=== PATIENT | female | born 1945 | race Caucasian/White ===

== ENCOUNTER → 2016-09-06 15:36 | Outpatient (CLI) | payer MEDICARE, OTHER | END | disposition home or self-care (01) | LOC: D.MRI 15:36 | DX: M54.5 Low back pain (principal) ==

== ENCOUNTER → 2016-09-28 17:18 | Outpatient (CLI) | payer MEDICARE | END | disposition home or self-care (01) | LOC: D.MAMMO 15:30 | DX: Z12.31 Encounter for screening mammogram for malignant neoplasm of breast (principal) ==

== ENCOUNTER 2018-03-27 06:40 | Day surgery (SDC) | payer MEDICARE, OTHER ==
[2018-03-26 13:01] LABS: BASOPHILS 0.3 % (0-2); HEMATOCRIT 43.2 % (36.0-48.0); HEMOGLOBIN 14.6 g/dL (12-16); IMMATURE GRANULOCYTES 0.5 % (0-5); LYMPHOCYTES 20.5 % (15-50); MCH 31.1 pg (26.0-34.0); MCHC 33.8 g/dL (31.0-37.0); MCV 92.1 fL (80.0-100.0); MEAN PLATELET VOLUME 9.2 fL (7.4-10.4); MONOCYTES 8.7 % (2-11); PLATELET COUNT 281 10x3/uL (130-400); RBC 4.69 10x6/uL (4.00-5.40); RDW 13.2 % (11.5-14.5); WBC 15.9 10x3/uL (4.8-10.8)
[2018-03-26 13:15] LABS: APTT 21.1 SECONDS (22.8-39.4); INR 0.83 (0.85-1.17)
[2018-03-26 13:17] LABS: CALC OSMOLALITY 282 mosm/kg (275-300); CALCIUM 9.7 mg/dL (8.5-10.1); CARBON DIOXIDE 28.5 mmol/L (21.0-32.0); CHLORIDE - SERUM 102 mmol/L (98-107); CREATININE - SERUM 0.7 mg/dL (0.6-1.3); GLUCOSE 120 mg/dL (74-106); POTASSIUM - SERUM 4.2 mmol/L (3.5-5.1); SODIUM 139 mmol/L (136-145); UREA NITROGEN 23 mg/dL (7-18); eGFR NON AFRICAN AMERICAN 88 mL/min (90-120)
[~2018-03-27] VITALS: Ht 165.1 cm; Wt 61.2 kg
--- NOTE | ~2018-03-27 | OP ---
PATIENT NAME: ALTAGRACIA GARCÍA MEDICAL RECORD: [id number] :49 LOCATION:D.OPS ADMISSION DATE: SURGEON: MARCIANO AMEZCUA MD DATE OF OPERATION: 03/27/2018 SURGEON: Marciano Amezcua MD ANESTHESIA: General anesthesia by Eusebio Charles CRNA. DIAGNOSES: 1. Female stress urinary incontinence. 2. Midline cystocele, Piedmont-Walker grade II. 3. Rectocele, Piedmont-Walker grade II. PROCEDURES: Cystoscopy, pubovaginal sling using [employer] Obtryx graft, cystocele repair using [employer] Uphold mesh graft, rectocele repair by levator ani muscle plication. FINDINGS ON CYSTOSCOPY: Single ureteral orifices bilaterally. No bladder injury, no bladder tumors. SPECIMENS: Posterior vaginal wall mucosa. BLOOD LOSS: 50 mL. CLINICAL HISTORY: This is a 72-year-old female A3, who was referred by Dr. Thrasher for a chief complaint of urinary incontinence. She had symptoms for over 10 years. At that time, she was in [place] and she was offered a pubovaginal sling. However, she was worried about the adverse publicity generated by vaginal mesh reconstructions and therefore she held off having any surgery done. In the meantime, her symptoms have become worse. She is post vaginal hysterectomy. When I examined her, she also had a pelvic organ prolapse with a midline grade II cystocele and rectocele grade II. She has trouble completely emptying her bladder. She also has trouble completely emptying her rectum with defecation. After a prolonged period of time and with discussion regarding the pros and cons of fascial graft versus mesh graft, she decided to go with a mesh graft for her repair. SHE IS ALLERGIC TO ACETAMINOPHEN. We gave her Ancef contact officer to the OR. DESCRIPTION OF PROCEDURE: The patient was given induction of general anesthesia in supine position. She was then placed into dorsal lithotomy position and shaved, prepped and draped. A Wells catheter 16-Thai was inserted into the bladder and put to bag drainage. There is some vaginal stenosis, which makes placement of a weighted speculum difficult. I had to perform an episiotomy incision on the posterior fourchette in order to open it up. This allowed the weighted speculum to be placed into opened up vaginal opening. The #1 sutures were used through the labia majora and anchored to the medial thighs on each side. These stay sutures acted as retraction sutures to keep the vagina open. The cystocele was readily visible. The anterior vaginal wall was infiltrated with Pitressin solution. Twenty units of Pitressin was dissolved in 100 mL of injectable normal saline. This solution was used for hydrodissection. A transverse incision was made at the level of the bladder neck. This was made using a #15 blade. Using Metzenbaum scissors, we then proceeded to dissect the plane between the anterior vaginal wall and the undersurface of the bladder. Laterally, we took down the pubocervical fascia on each side. Anteriorly, I OPERATIVE REPORT [id number] ALTAGRACIA GARCÍA cleared off the obturator membrane and especially the apical portion of the obturator membrane. Posteriorly, we entered the presacral space, which contained the ischial spine and the sacrospinous ligament. Once the space was all cleared, I now used the [employer] suture jinrikisha driver to place the posterior suspensory arms of the [employer] Uphold graft to the sacrospinous ligaments on each side. The landmark is 1 cm medial to the ischial spine and the sutures placed through the sacrospinous ligament. The reason for moving medially away from the ischial spine is to avoid hitting the internal pudendal artery and nerve. Once these were in correct position, the graft was pulled down using the graft arms into the correct position. A 3-0 Vicryl tacking suture was placed at the level of the vaginal cuff and also at the level of the bladder neck in order to prevent the cystocele or prevent the graft from curling up. It laid completely flat under the bladder. We then landmarked for the pubovaginal sling. The entry point is inferior to the insertion of the adductor longus muscle on the descending pubic ramus. A stab incision was made here on each side. The helical trocars were then placed through this incision point, deep to the descending pubic ramus and then the tip of the needle would exit through the anterior apex of the obturator membrane. The Obtryx graft arms were then attached to the tips of the helical needles and these needles were withdrawn resulting in transobturator passage of the pubovaginal sling. At this point, we removed the Wells catheter. Cystoscopy was performed using a 21-Thai cystoscope with 30-degree lens. No bladder injury was seen on cystoscopy. The bladder was filled using normal saline. Once the scope was removed by applying suprapubic pressure manually, we could elicit leakage per the urethra. The sling was then gently tightened up until further suprapubic pressure did not cause any further leakage. At this point, the tab in the midpoint of the pubovaginal sling was removed by cutting its suture and the sling was positioned to be under the mid urethra and to lay completely flat under the mid urethra. A clear plastic sheath material on each of the graft arms was removed by cutting the suture and this allowed each of the sutures to be pulled off the graft arms. The graft arms were cut off where they exited the groin incision. The groin incision was closed with simple interrupted 4-0 Monocryl suture. Similarly, the tension was applied on the graft arms of the cystocele repair. This resulted in a nice flat reduction of the cystocele. The clear plastic sheath material was removed entirely from both graft arms. The graft arms were trimmed shorter using Cárdenas scissors. The wound was irrigated out using normal saline. The anterior vaginal wall was closed using running 4-0 Monocryl. We then turned our attention to the posterior vaginal wall and the rectocele. An elliptical area of the posterior vaginal wall was marked out. The posterior vaginal wall was infiltrated with Pitressin solution for hydrodissection. The elliptical area was excised using a #15 blade. Metzenbaum scissors were used to create the dissection between the posterior vaginal wall and the anterior surface of the rectum. As we continued to dissect laterally and cranially, I cleared the space on either side of the rectum where the levator ani muscles were present. These could be palpated easily on each side. The 2-0 Prolene sutures were placed using the Capio suture jinrikisha driver into each of the levator ani muscle to create a horizontal mattress suture. These sutures were tied down and this resulted in the 2 muscles from each side meeting in the midline and thus pushing the rectum down. About 4 of these horizontal mattress sutures of 2-0 Prolene were fired with a Capio to completely reduce the rectocele. The perineal body was reapproximated using 2-0 Prolene suture in a horizontal mattress fashion. The posterior vaginal wall mucosa was then reapproximated OPERATIVE REPORT [id number] ALTAGRACIA GARCÍA using running 4-0 Monocryl. The Wells catheter was then removed. The #1 nylon stay sutures were removed. Vaginal packing consisting of Kerlix infiltrated with estradiol cream was placed into the vaginal cavity. This will be removed prior to her going home today. If she is unable to void, then we will send her home with a Wells catheter to bag drainage. TRANSINT:[id number] Voice Confirmation ID: [id number] DOCUMENT ID: [id number] MARCIANO AMEZCUA MD at 1455 CC: [id number] DICTATION DATE: 03/27/18 1221 CONTENT DEVELOPMENT MANAGER: 03/27/18 1345 DEP SDC 03/27/18 [id number] [place] [address]
[~2018-03-27 06:40] MED LIST: DEXILANT60 MG PO; GLUCOPHAGE500 MG PO; IMITREX6 MG/0.51 SQ; MYRBETRIQ25 MG PO; OXYCODONE HCL5 M1 PO; ROBAXIN500 MG PO; STARLIX120 MG PO; VALIUM5 MG PO
[2018-03-27 08:04] VITALS: BP 138/57; Ht 165.1 cm; Wt 61.2 kg
== END 2018-03-27 18:35 | disposition home or self-care (01) ==
LOC: D.OPS 06:40 → D.PAN 09:15 → D.OPS 18:35
PROVIDERS: Anesthesiology
DX: N39.3 Stress incontinence (female) (male) (principal); N81.11 Cystocele, midline; N81.6 Rectocele; Z88.6 Allergy status to analgesic agent

== ENCOUNTER → 2018-03-30 18:18 | Outpatient (CLI) | payer MEDICARE, OTHER ==
[2018-03-27 08:04] VITALS: BMI 22.5
[~2018-03-30 18:18] MED LIST changes: +AMOXICILLIN500 M1 PO; +CIPRO250 MG PO; +HALCION0.25 MG; +HYDROCODONE-IB1 EAC3 PO; +OXYBUTYNIN CHLOR5 MG PO
== END | disposition home or self-care (01) ==
LOC: D.LABREF 18:18
DX: R31.9 Hematuria, unspecified (principal); D72.829 Elevated white blood cell count, unspecified

== ENCOUNTER 2018-04-10 00:33 | Inpatient (IN) | payer MEDICARE, OTHER ==
[~2018-04-10] VITALS: Ht 165.1 cm; Wt 59.0 kg
--- NOTE | ~2018-04-10 | HEMODYNAMI ---
PATIENT:ALTAGRACIA GARCÍA MEDICAL RECORD: [id number] : 49 LOCATION:[facility] D.2237 ADMISSION DATE: 04/10/18 Generatedon:04/13/201811:01 Patient name: ALTAGRACIA GARCÍA Patient #: [id number] SSN: DO B: 1945 Date of study: 04/13/2018 Page: Of Hemodynamic Procedure Report Patient Data Patient Demographics Procedure consent was obtained First Name: ALTAGRACIA Gender: Female Last Name: RAQUEL : 1945 Middle Initial: LORA Age: 72 year(s) Patient #: [id number] Race: Unknown Additional ID: [id number] Contact details Address: [address] [place] [address] [address] State: [place] City: [place] Zip code: [address] Past Medical History Allergies Allergen Reaction Date Comments Reported Acetaminophen 04/10/2018 Admission Admission Data Admission Date: 04/10/2018 Admission Time: 0:59 Room #: D.2237 Height (in.): 65 BSA: 1.65 (m2) Height (cm.): 165.1 BMI: 21.63 (kg/m2) Weight (lbs.): 130 Weight (kg.): 58.97 Procedure Procedure Types Cath Procedure Peripheral Cath Diagnostic Procedure Tack Puller Peripheral Procedures Nephro Nephrostomy Tube Removal Procedure Description Procedure Date Procedure Date: 04/13/2018 Procedure Start Time: 10:56 Procedure Staff Name Function Silvestre Hernandez MD Performing Physician Jaquelin Johnson RT Glassware Maker Leonora Peter RN Nurse Toyin Granados RN Nurse Gilson Darnell RT Scrub Procedure Data Cath Procedure Fluoroscopy Diagnostic fluoroscopy Total fluoroscopy Time: 1.3 time: 1.3 min min Diagnostic fluoroscopy Total fluoroscopy dose: 32 dose: 32 mGy mGy Contrast Material Contrast Material Type Amount (ml) Isovue 300 5 Hemodynamics Rest BSA: 1.65 (m2) O2 Consumption: Estimated: 224.4 (ml/min) O2 Consumption indexed: Estimated:136 (ml/min/m) Pre Cath Intra NCS Post Cath Procedure Log Time Note 10:27:51 Patient Height : 65 inches 10:27:52 Patient Weight : 130 lbs 10:33:09 Use device set IR Diagnostic 10:33:12 Tegaderm 4 x 4 (1626W) opened to sterile field. 10:33:13 Sterile Angiographic Pack opened to sterile field. 10:33:14 Bag Decanter () opened to sterile field. 10:33:27 - 10:48:24 Toyin Granados RN sent for patient. Start room use. 10:48:54 Patient received from Med/Surg to IR Alert and oriented. Tansferred to table in Prone position. 10:48:56 Correct patient and procedure confirmed by team. 10:48:58 Signed procedure consent form obtained from patient. 10:49:00 - 10:49:13 Pre-procedure instructions explained to patient. 10:49:14 Pre-op teaching completed and patient verbalized understanding. 10:49:21 Patient NPO since Midnight. 10:49:41 right Lumbar area was prepped with chlora-prep and draped in sterile fashion 10:50:02 - 10:56:03 Physician arrived 10:56:11 --------ALL STOP TIME OUT------ 10:56:12 Final Timeout: patient, procedure, and site verified with staff and physician. All members of the team are in agreement. 10:56:42 Procedure started. 10:56:42 Full Disclosure recording started 10:57:41 PROSPER .035 15cm wire ([id number]) opened to sterile field. 10:59:33 nephrostomy tube removed 11:00:01 Procedure ended.(Physican Out) 11:00:23 Fluoroscopy time 01.30 minutes. 11:00:28 Fluoroscopy dose: 32 mGy 11:00:28 Flurop Dose total: 32 11:00:35 Contrast amount:Isovue 300 5ml. 11:00:38 Procedure and supply charges have been captured, reviewed, submitted an d are correct. 11:01:19 Report given to Med/Surg. Device Usage Item Name Manufacture Quantity Catalog Hospital Part Current Minimal Lot# / Number Charge Number Stock Stock Serial# Code Tegaderm 4 x 3M 1 1626W [id number] 4 (1626W) Sterile Cardinal 1 [id number] 5 Angiographic Health Pack Bag Decanter Microtek 1 [id number] [id number] 5 (2001S) Medical Inc[employer] PROSPER .035 [employer] 1 [id number] 5 [id number] 15cm wire ([id number]) Signature Audit [place] Stage Time Signature Unsigned Intra-Procedure 04/13/2018 Jaquelin Johnson 11:01:36 AM RT(R) [id number] [place] [address]
--- NOTE | ~2018-04-10 | OP ---
PATIENT NAME: ALTAGRACIA GARCÍA MEDICAL RECORD: [id number] :49 LOCATION:D.MS Mendez2237 ADMISSION DATE:04/10/18 SURGEON: MARCIANO AMEZCUA MD DATE OF OPERATION: 04/12/2018 SURGEON: Marciano Amezcua MD ANESTHESIA: General anesthesia by Eusebio Charles CRNA. DIAGNOSES: 1. Infected vaginal prolapse repair mesh. 2. Bladder or right ureteral injury with urinoma in the pelvis and right hydronephrosis. PROCEDURES: 1. Complete removal of pubovaginal sling mesh. 2. Complete removal of cystocele repair with mesh. 3. Cystoscopy, right retrograde pyelogram, right ureteral stent insertion 6-Jordanian x 22 cm without string attached. FINDINGS: On cystoscopy, single ureteral orifices bilaterally. Bladder injury in the posterior right bladder wall, leading to distortion of the intramural ureter. On retrograde pyelogram, right distal ureteral distortion, but no extravasation of contrast seen. Right proximal ureteral hydronephrosis. ESTIMATED BLOOD LOSS: Minimal. POSTOPERATIVE DIAGNOSIS: Pubovaginal sling mesh and cystocele repair with mesh. CLINICAL HISTORY: This is a 72-year-old female, who is post-hysterectomy and she has a longstanding history of pelvic prolapse including a cystocele, stress urinary incontinence, and rectocele. A few weeks ago, I performed a pubovaginal sling and cystocele repair with mesh. She also had a rectocele repair with levator ani plication. Postoperatively, she had a urinary tract infection, which we treated with oral antibiotics. She complained of severe pelvic pain. She eventually went to the Emergency Room at [facility] where abdominal and pelvic CT scan was obtained with IV contrast. This showed extravasation of urine into the right pelvic wall, possibly from the right distal ureter. She was transferred to this hospital for urinoma. Since she recently had a urinary tract infection and there seemed to be ureteral or bladder injury causing exposure of the mesh to infected urine. She will need removal of all the infected mesh. In this hospital, she went to interventional radiology where I had them attempt an antegrade placement of a ureteral stent. They were unable to get a stent through. They said the wire actually looped around and went out into the urinoma through presumably the distal ureter. They left her with the nephrostomy tube. Today, she comes to have the mesh completely removed. I will try to get a ureteral stent passed so that if there is a ureteral injury, the ureter can heal over the stent. SHE IS ALLERGIC TO TYLENOL. She was given Ancef optical effects line up person to the OR. DESCRIPTION OF PROCEDURE: The patient was given induction of general anesthetic in supine position. She was then placed into dorsal lithotomy position and prepped and draped. A Wells catheter was put into the bladder and put to bag drainage. The vagina is quite stenotic and it could not accommodate a weighted speculum. I therefore just put a right angle retractors and to hold the OPERATIVE REPORT [id number] GARCÍAALTAGRACIA posterior vaginal wall down. A #1 nylon sutures were placed through the labia majora and anchored to the medial thighs. The stay sutures opened up the vaginal introitus. The transverse incision that I had made for the anterior compartment repair was seen. This incision was reopened using a #15 scalpel. I then used the Kairos4 suction tip to perform dissection. This dissection actually went very quickly. There were really no adhesions between the anterior vaginal wall and the mesh underneath. Similarly, the mesh was sitting quite freely without any adhesions to the undersurface of the bladder. I bluntly dissected the pubovaginal sling free. By placing a right angle clamp right up against the obturator membrane where it inserted at the apex of the obturator membrane I managed to pull the entire length of transobturator mesh out. This was done on both sides and then the entire sling specimen came out. This was sent to pathology for identification. The cystocele repair mesh has some sutures of Vicryl, which were tacked to the vaginal apex. I cut the sutures Metzenbaum scissors. Again, using a right angle clamp and going right up to the sacrospinous ligament, I was able to pull out the mesh from its insertion to the sacrospinous ligaments. This completely freed the mesh and this mesh was completely removed and sent to pathology for identification of the cystocele repair with mesh. In palpating the anterior compartment, there was no palpable mesh remaining. The Wells catheter was then removed. I performed cystoscopy. Immediately it became apparent that the patient had a bladder injury. During her initial surgery, I had performed cystoscopy and I did not notice any obvious bladder injury. However, she must have had a bladder injury, very superficially underneath the mucosa. This had eroded through and a partly healed cavity was seen in the posterior wall of the bladder somewhat proximal to the right ureteral orifice. She has single ureteral orifices on each side. I inserted an open-ended ureteral catheter into the right ureteral orifice. The catheter would advance for slight distance proximally, but then it was held up by some resistance. We performed a retrograde pyelogram by injecting diluted contrast. At the level of the possible ureteral injury, there was a stenosis of the lumen. However, there was no extravasation. Proximal to the stenotic area. There was some hydronephrosis, but the contrast went all the way up to the renal pelvis. I was then able to insert a Sensor wire up the lumen of the ureteral access catheter and this Sensor wire managed to straighten out the distortions in the distal ureter, which was preventing migration of the ureteral catheter. Once a Sensor wire was up in the renal pelvis, we were then able to remove the ureteral catheter entirely. Over the wire, we inserted the 6-Jordanian x 22 cm ureteral stent. Once the stent was in correct position, the wire was completely withdrawn. The distal end was pushed into the bladder using a pusher. Fluoroscopy confirmed good position of the stent. The bladder injury site, I cannot palpate through the vaginal approach. It is quite near the dome of the bladder and accessible for repair. Without the foreign body of the mesh being present, it will heal spontaneously. Therefore, the cystoscope was removed and I put the Wells catheter back into the bladder. The vaginal dissection cavity was irrigated out using normal saline. The vaginal incision was reapproximated using 4-0 running Monocryl. The stay sutures were removed. Vaginal packing consisting of Kerlix with estradiol cream was placed into the vagina. My intention is to leave her with a Wells catheter for 10 days to let the bladder heal. She will keep the ureteral stent for at least a month to rule out any possible ureteral injury to heal. I will discuss the situation with interventional radiology to see if they can remove the nephrostomy tube in the meantime. TRANSINT:[id number] Voice Confirmation ID: [id number] DOCUMENT ID: [id number] OPERATIVE REPORT [id number] ALTAGRACIA GARCÍA, MARCIANO Ernst MD at 0802 CC: [id number] DICTATION DATE: 04/12/18 184 UTILIZATION REVIEWER: 04/12/18 2256 ADM IN [facility] [id number]
--- NOTE | ~2018-04-10 | MORECARE ---
CASE MANAGEMENT DISCHARGE SUMMARY PATIENT: ALTAGRACIA GARCÍA UNIT: [id number] ADM DATE: 04/10/18 AGE: 72 : [birth year] SEX: F ROOM/BED: D.2237 AUTHOR: ROXANNE BEEBE PHYSICIAN: REFERRING PHYSICIAN: ALPESH AMEZCUA MD DATE OF SERVICE: 04/11/18 Discharge Plan Patient Name: ALTAGRACIA GARCÍA Facility: [facility]:[place] : 1945 Planned Disposition: Anticipated Discharge Date: Discharge Date: Expected LOS: Initial Reviewer: [email or web address] Initial Review Date: 04/11/2018 Generated: 04/11/18 3:21 pm Comments DCP- Discharge Planning Updated by [email or web address]: Rhona Ruiz on 04/11/18 1:[address] Patient Name: ALTAGRACIA GARCÍA Admission Status: ER Accout number: [id number] Admission Date: 04-10-2018 : 1945 Admission Diagnosis: Attending: JM AMEZCUA Current LOS: 1 Anticipated DC Date: Planned Disposition: Primary Insurance: MEDICARE A & B Discharge Planning Comments: CM MET WITH PATIENT ABOUT DC PLANNING/NEEDS. PATIENT PLANS TO DC TO HOME WHEN BETTER. STATES DOESN'T KNOW IF SHE WILL HAVE ANY NEEDS UNTIL AFTER SURGERY. CM WILL FOLLOW AND ASSIST NEEDED WITH DC PLANNING/NEEDS. Pin Setter: Rhona Ruiz DCPIA - Discharge Planning Initial Assessment Updated by [email or web address]: Rhona Ruiz on 04/11/18 2:14 pm * Is the patient Alert and Oriented? Yes * How many steps to enter\exit or inside your home? * PCP [facility] * [facility] * Preadmission Environment Home Alone * ADLs Independent * Equipment Cane * List name and contact numbers for known caregivers / representatives who currently or will assist patient after discharge: GÉNESIS, * Community resources currently utilized None * Has this patient been hospitalized within the prior 30 days at any hospital? No Patient Name: ALTAGRACIA GARCÍA Page [id number] at 1421 All edits/amendments must be made on the electronic document DICTATION DATE: 04/11/18 1421 COMPONENT OVERHAUL OPERATOR: MICA 04/11/18 1421 RPT#: [id number] DC DATE: STATUS: ADM IN [facility] [address] [place] [address] END OF REPORT
--- NOTE | ~2018-04-10 | MORECARE ---
CASE MANAGEMENT DISCHARGE SUMMARY PATIENT: ALTAGRACIA GARCÍA UNIT: [id number] ADM DATE: 04/10/18 AGE: 72 : [birth year] SEX: F ROOM/BED: D.2237 AUTHOR: ROXANNE BEEBE PHYSICIAN: REFERRING PHYSICIAN: ALPESH AMECZUA MD DATE OF SERVICE: 04/16/18 Discharge Plan Patient Name: ALTAGRACIA GARCÍA Facility: [facility]:[place] : 1945 Planned Disposition: Anticipated Discharge Date: Discharge Date: 04/13/2018 Expected LOS: Initial Reviewer: [email or web address] Initial Review Date: 04/11/2018 Generated: 04/16/18 9:24 am Comments DCP- Discharge Planning Updated by [email or web address]: Rhona Ruiz on 04/11/18 1:[address] Patient Name: ALTAGRACIA GARCÍA Admission Status: ER Accout number: [id number] Admission Date: 04-10-2018 : 1945 Admission Diagnosis: Attending: JM AMEZCUA Current LOS: 1 Anticipated DC Date: Planned Disposition: Primary Insurance: MEDICARE A & B Discharge Planning Comments: CM MET WITH PATIENT ABOUT DC PLANNING/NEEDS. PATIENT PLANS TO DC TO HOME WHEN BETTER. STATES DOESN'T KNOW IF SHE WILL HAVE ANY NEEDS UNTIL AFTER SURGERY. CM WILL FOLLOW AND ASSIST NEEDED WITH DC PLANNING/NEEDS. Bicycle Messenger: Rhona Ruiz DCPIA - Discharge Planning Initial Assessment Updated by [email or web address]: Rhona Ruiz on 04/11/18 2:14 pm * Is the patient Alert and Oriented? Yes * How many steps to enter\exit or inside your home? * PCP [facility] * [facility] * Preadmission Environment Home Alone * ADLs Independent * Equipment Cane * List name and contact numbers for known caregivers / representatives who currently or will assist patient after discharge: GÉNESIS, * Community resources currently utilized None * Has this patient been hospitalized within the prior 30 days at any hospital? No Last DP export: 04/11/18 1:21 Patient Name: ALTAGRACIA GARCÍA Page [phone] at 0824 All edits/amendments must be made on the electronic document DICTATION DATE: 04/16/18822 GAME PRODUCER: MICA 04/16/18822 RPT#: [id number] DC DATE:04/13/18 STATUS: DIS IN [facility] [address] [place] [address] END OF REPORT
--- NOTE | ~2018-04-10 | HEMODYNAMI ---
PATIENT:ALTAGRACIA GARCÍA MEDICAL RECORD: [id number] : 49 LOCATION:[facility] D.[facility]37 ADMISSION DATE: 04/10/18 Generatedon:04/10/201815:23 Patient name: ALTAGRACIA GARCÍA Patient #: [id number] SSN: DO B: 1945 Date of study: 04/10/2018 Page: Of Hemodynamic Procedure Report Patient Data Patient Demographics Procedure consent was obtained First Name: ALTAGRACIA Gender: Female Last Name: RAQUEL : 1945 Middle Initial: LORA Age: 72 year(s) Patient #: [id number] Race: Unknown Additional ID: [id number] Contact details [address]: [address] [place] [address] [address] State: [place] City: [place] Zip code: [address] Past Medical History Allergies Allergen Reaction Date Comments Reported Acetaminophen 04/10/2018 Admission Admission Data Admission Date: 04/10/2018 Admission Time: 0:59 Room #: D.2237 Height (in.): 65 BSA: 1.65 (m2) Height (cm.): 165.1 BMI: 21.63 (kg/m2) Weight (lbs.): 130 Weight (kg.): 58.97 Procedure Procedure Types Cath Procedure Peripheral Cath Diagnostic Procedure Press And Blow Machine Tender Peripheral Procedures Nephro Nephrostomy w/ Ureteral Stent Procedure Description Procedure Date Procedure Date: 04/10/2018 Procedure Start Time: 14:48 Procedure Staff Name Function Helena Bernabe MD Performing Physician Leonora Peter RN Nurse Jaquelin Johnson RT Professional Nursing Assistant Gilson Darnell RT Scrub Procedure Data Cath Procedure Fluoroscopy Diagnostic fluoroscopy Total fluoroscopy Time: 6.2 time: 6.2 min min Diagnostic fluoroscopy Total fluoroscopy dose: 111 dose: 111 mGy mGy Contrast Material Contrast Material Type Amount (ml) Isovue 300 25 Procedure Medications Medication Administration Route Dosage Heparin Flush Bag added to field 1 bags (1000units/500ml NS) Lidocaine 1% 20 Fentanyl I.V. 100 mcg Versed I.V. 2 mg Versed I.V. 1 mg Fentanyl I.V. 50 mcg unlisted medication 1 Versed I.V. 1 mg Fentanyl I.V. 50 mcg Hemodynamics Rest BSA: 1.65 (m2) O2 Consumption: Estimated: 166.42 (ml/min) O2 Consumption indexed : Estimated:100.86 (ml/min/m) Heart Rate: 93 (bpm) Snapshots Pre Cath Intra NCS Post Cath Vital Signs Time Heart Resp SPO2 etCO2 NIBP (mmHg) Rhythm Pain Sedation Rate (ipm) (%) (mmHg) Status Level (bpm) 14:33:13 96 15 100 24.9 162/71(117) NSR 0 (11) 10(A) , No pain 14:38:12 105 12 100 29.5 Measuring NSR 0 (11) 10(A) , No pain 14:39:36 97 16 100 26.4 Time NSR 0 (11) 10(A) Exceeded , No pain 14:42:03 98 15 100 13.6 173/82(121) NSR 0 (11) 10(A) , No pain 14:46:27 109 16 100 22.6 174/77(130) NSR 0 (11) 10(A) , No pain 14:50:50 86 15 100 40 142/57(104) NSR 0 (11) 10(A) , No pain 14:55:10 92 14 100 0 131/51(89) NSR 0 (11) 10(A) , No pain 14:59:30 89 7 100 44.6 123/48(82) NSR 0 (11) 8(A) , No pain 15:03:44 101 11 100 44.6 127/53(98) NSR 0 (11) 8(A) , No pain 15:08:04 89 6 100 45.4 132/55(84) NSR 0 (11) 8(A) , No pain 15:13:03 105 13 100 39.3 Measuring NSR 0 (11) 8(A) , No pain 15:13:20 98 10 100 42.3 130/56(99) NSR 0 (11) 8(A) , No pain 15:17:38 94 8 100 42.4 142/59(96) NSR 0 (11) 8(A) , No pain 15:21:58 97 12 100 37 141/58(93) NSR 0 (11) 8(A) , No pain Medications Time Medication Route Dose Verified Delivered Reason Notes Effec tiveness by by 14:40:41 Heparin Flush added 1 M J Long M J Long used for Bag to bags MD WILLIS procedure (1000units/500ml field NS) 14:40:52 Lidocaine 1% 20ml M J Long M J Long used for vial MD WILLIS procedure 14:49:06 Fentanyl I.V. 100 M J Long Leonora for [facility] MD [place] ALBARRAN sedation 14:50:29 cefepime iv 1 gm M J Long Leonora MD Peter RN 14:50:36 Versed I.V. 2 mg M J Long Leonora for MD [place] ALBARRAN sedation 14:59:00 Versed I.V. 1 mg M J Long Leonora for MD [place]AN sedation 14:59:08 Fentanyl I.V. 50 M J Long Leonora for antony Peter RN sedation 15:08:52 Versed I.V. 1 mg M J Long Leonora for MD [place] ALBARRAN sedation 15:09:03 Fentanyl I.V. 50 M J Long Leonora for [facility] MD [place]ARRAN sedation Procedure Log Time Note 13:30:57 Patient Weight : 130 lbs 13:31:01 Patient Height : 65 inches 14:19:13 Time tracking: Regular hours (M-F 7:00 - 5:00) 14:19:34 Plan of Care:Hemodynamics will remain stable., Cardiac rhythm will remain stable., Comfort level will be maintained., Respiratory function will remain adequate., Patient/ family verbilizes understanding of procedure., Procedure tolerated without complication., Recovers from procedure without complications.. 14:20:58 Patient received from Med/Surg to IR Alert and oriented. Tansferred to table in Prone position. 14:21:00 Correct patient and procedure confirmed by team. 14:21:03 Signed procedure consent form obtained from patient. 14:21:10 H&P Date Dictated: 04/10/2018 Within 30 days and on chart.. 14:21:12 Pre-procedure instructions explained to patient. 14:21:13 Pre-op teaching completed and patient verbalized understanding. 14:21:17 Family unavailable. 14:21:20 Patient NPO since Midnight. 14:21:31 Patient allergic to Acetaminophen 14:21:36 Is the patient allergic to Iodine/contrast media? No. 14:21:39 Is patient on blood thinner?No 14:21:43 Patient diabetic? Yes. 14:21:58 If diabetic: On Metformin? Yes 14:22:41 If on Metformin: Last Dose? 04/09/2018 14:22:46 - 14:22:47 ----Pre-sedation anethsthesia assessment.---- 14:22:52 Previous problem with sedation/anesthesia? No ? 14:22:55 Snore? No 14:22:58 Sleep apnea? Yes 14:23:02 Deviated septum? No 14:23:05 Opens mouth fully? Yes 14:23:08 Sticks out tongue? Yes 14:23:11 Airway obstruction? No ? 14:23:15 Dentures? No ? 14:23:30 IV patent on arrival in left forearm with D5/.45%NaCl at KVO. 14:23:53 Right renal area was prepped with chlora-prep and draped in sterile fashion 14:24:16 - 14:24:22 Use device set IR Diagnostic 14:24:24 Tegaderm 4 x 4 ([id number]) opened to sterile field. 14:24:25 Sterile Angiographic Pack opened to sterile field. 14:24:26 Bag Decanter () opened to sterile field. 14:24:45 KIT, INTRODUCER ACCUSTICK II W/C ([id number]) opened to sterile field. 14:24:50 - 14:31:54 ECG and BP/O2 sat monitors applied to patient. 14:31:56 Vital chart was started 14::57 Baseline sample Acquired. 14:32:00 Full Disclosure recording started 14:32:01 - 14:40:41 Heparin Flush Bag (1000units/500ml NS) 1 bags added to field was administered by Helena Bernabe MD; used for procedure; 14:40:52 Lidocaine 1% 20ml vial was administered by Helena Bernabe MD; used for procedure; ::57 Baseline sample Acquired. 14:47:28 Physician arrived 14:47:36 --------ALL STOP TIME OUT------ 14:47:37 Final Timeout: patient, procedure, and site verified with staff and physician. All members of the team are in agreement. 14:48:07 Procedure started. 14:48:16 Local anesthetic to Lumbar area with Lidocaine 1% by Helena Bernabe MD.INITIAL ACCESS ONLY 14:48:19 GLIDE CATHETER 5FR ANGLED 65cm (CG507) opened to sterile field. 14:49:06 Fentanyl 100 mcg I.V. was administered by Leonora Peter RN; for sedation; 14:49:23 CHIBA 22 X 15 needle opened to sterile field. 14:50:29 cefepime 1 gm iv was administered by Leonora Peter RN; ; 14:50:36 Versed 2 mg I.V. was administered by Leonora Peter RN; for sedation; 14:59:00 Versed 1 mg I.V. was administered by Leonora Peter RN; for sedation; 14:59:08 Fentanyl 50 mcg I.V. was administered by Leonora Peter RN; for sedation ; 15:05:40 GLIDE WIRE ANGLE 180cm ([id number]) opened to sterile field. 15:08:52 Versed 1 mg I.V. was administered by Leonora Peter RN; for sedation; 15:09:03 Fentanyl 50 mcg I.V. was administered by Leonora Peter RN; for sedation ; 15:13:04 Abscession 8Fr drainage catheter ([id number]) opened to sterile field. 15:13:06 BAG, DRAINAGE EMPTY 600ML W/BORIS (POL694) opened to sterile field. 15:13:07 STOPCOCK 3-Way Large Bore ([id number]) opened to sterile field. 15:19:19 Procedure ended.(Physican Out) 15:19:36 Fluoroscopy time 06.20 minutes. 15:19:41 Fluoroscopy dose: 111 mGy 15:19:41 Flurop Dose total: 111 15:19:46 Contrast amount:Isovue 300 25ml. 15:19:48 Procedure and supply charges have been captured, reviewed, submitted an d are correct. 15:22:56 Report given to Med/Surg. 15:23:24 Vital chart was stopped Device Usage Item Name Manufacture Quantity Catalog Hospital Part Current Minima l Lot# / Number Charge Number Stock Stock Serial# Code Tegaderm 4 x 3M 1 [id number] [id number] 5 4 (1626W) Sterile Cardinal [address] [id number] 482425 5 Angiographic Health Pack Bag Decanter Microtek 1 213952 02140 619182 5 () [employer] KIT, [place] 1 [id number] 825448 [id number] 049312 5 INTRODUCER Scientific ACCUSTICK II W/C ([id number]) GLIDE Terumo 1 CG507 111574 801211 5 CATHETER 5FR ANGLED 65cm (CG507) CHIBA 22 X [employer] 1 [id number] 782540 361712 5 15 needle GLIDE WIRE Terumo 1 [id number] 781755 650353 851077 5 ANGLE 180cm (DH2023) Abscession Angiodynamics 1 [id number] 578503 862541 948963 5 8Fr drainage catheter ([id number]) BAG, [facility] 1 [id number] 943715 763888 882024 5 DRAINAGE EMPTY 600ML W/BORIS ([id number]) STOPCOCK [employer] 1 J01812 074398 9449 480424 5 [id number] 3-Way Large Bore (F46023) Signature Audit [place] Stage Time Signature Unsigned Intra-Procedure 04/10/2018 Jaquelin Johnson 3:23:21 PM RT(R) [facility] [address] [place] [address]
[~2018-04-10 00:33] MED LIST changes: -AMOXICILLIN500 M1 PO; -CIPRO250 MG PO; -HALCION0.25 MG; -HYDROCODONE-IB1 EAC3 PO; -OXYBUTYNIN CHLOR5 MG PO
[2018-04-10] MEDS ORDERED: CIPRO250 MG PO (00:39)
[2018-04-10] MEDS ORDERED: AMOXICILLIN500 M1 PO (00:40)
[2018-04-10 01:00] LABS: APPEARANCE CLEAR (CLEAR); BILIRUBIN NEGATIVE (NEGATIVE); COLOR YELLOW (YELLOW); GLUCOSE NEGATIVE (NEGATIVE); KETONE NEGATIVE (NEGATIVE); NITRITE NEGATIVE (NEGATIVE); PROTEIN NEGATIVE (NEGATIVE); UROBILINOGEN NORMAL (NORMAL)
[2018-04-10 02:23] VITALS: BP 151/48; BMI 21.6
[2018-04-10 08:26] LABS: CALCIUM 9.3 mg/dL (8.5-10.1); CARBON DIOXIDE 26.2 mmol/L (21.0-32.0); CREATININE - SERUM 1.3 mg/dL (0.6-1.3); POTASSIUM - SERUM 4.2 mmol/L (3.5-5.1)
[2018-04-10 08:28] LABS: BASOPHILS 0.1 % (0-2); EOSINOPHILS 1.4 % (0-7); HEMATOCRIT 37.2 % (36.0-48.0); IMMATURE GRANULOCYTES 0.4 % (0-5); LYMPHOCYTES 16.1 % (15-50); MCH 31.3 pg (26.0-34.0); MCHC 32.3 g/dL (31.0-37.0); MCV 96.9 fL (80.0-100.0); MEAN PLATELET VOLUME 9.6 fL (7.4-10.4); MONOCYTES 5.9 % (2-11); NEUTROPHILS 76.1 % (40-80); RBC 3.84 10x6/uL (4.00-5.40); RDW 13.8 % (11.5-14.5); WBC 14.1 10x3/uL (4.8-10.8)
[2018-04-10 08:37] LABS: PLATELET COUNT 472 10x3/uL (130-400)
[2018-04-10 09:23] VITALS: BP 126/48
[2018-04-10 11:36] VITALS: BP 148/86; BP 150/55
[2018-04-10 13:23] VITALS: BMI 21.6
[2018-04-10 14:28] LABS: APTT 24.1 SECONDS (22.8-39.4); INR 0.96 (0.85-1.17); PROTIME 12.4 SECONDS (11.6-15.0)
[2018-04-10 16:28] VITALS: BP 141/54
[2018-04-10 19:56] VITALS: BP 141/40
[2018-04-10 20:00] VITALS: BP 141/40
[2018-04-10] MEDS ORDERED: HALCION0.25 MG (20:43)
[2018-04-11 03:45] VITALS: BP 132/44
[2018-04-11 06:15] LABS: BASOPHILS 0.2 % (0-2); HEMATOCRIT 33.4 % (36.0-48.0); HEMOGLOBIN 10.6 g/dL (12-16); IMMATURE GRANULOCYTES 0.5 % (0-5); LYMPHOCYTES 17.8 % (15-50); MCH 30.6 pg (26.0-34.0); MCHC 31.7 g/dL (31.0-37.0); MCV 96.5 fL (80.0-100.0); MEAN PLATELET VOLUME 9.4 fL (7.4-10.4); MONOCYTES 5.5 % (2-11); PLATELET COUNT 396 10x3/uL (130-400); RBC 3.46 10x6/uL (4.00-5.40); RDW 13.4 % (11.5-14.5)
[2018-04-11 06:19] LABS: WBC 9.7 10x3/uL (4.8-10.8)
[2018-04-11 06:36] LABS: ALBUMIN 2.5 g/dL (3.4-5.0); ALKALINE PHOSPHATASE 31 U/L (46-116); ALT (SGPT) 10 U/L (10-68); BILIRUBIN - TOTAL 0.26 mg/dL (0.2-1.3); CALCIUM 8.5 mg/dL (8.5-10.1); CHLORIDE - SERUM 107 mmol/L (98-107); GLUCOSE 133 mg/dL (74-106); POTASSIUM - SERUM 3.9 mmol/L (3.5-5.1); SODIUM 142 mmol/L (136-145)
[2018-04-11 06:37] LABS: CALC OSMOLALITY 284 mosm/kg (275-300); CREATININE - SERUM 0.6 mg/dL (0.6-1.3); UREA NITROGEN 12 mg/dL (7-18); eGFR NON AFRICAN AMERICAN > 90 mL/min (90-120)
[2018-04-11 09:02] VITALS: BP 125/64
[2018-04-11 16:05] VITALS: BP 132/55
[2018-04-11 20:00] VITALS: BP 127/57
[2018-04-11 20:46] VITALS: Ht 165.1 cm; Wt 59.0 kg
[2018-04-12 04:42] VITALS: BP 159/71
[2018-04-12 05:08] LABS: ALBUMIN 2.6 g/dL (3.4-5.0); ALKALINE PHOSPHATASE 33 U/L (46-116); ALT (SGPT) 12 U/L (10-68); BILIRUBIN - TOTAL 0.26 mg/dL (0.2-1.3); CALC OSMOLALITY 287 mosm/kg (275-300); CALCIUM 8.6 mg/dL (8.5-10.1); CARBON DIOXIDE 27.5 mmol/L (21.0-32.0); CHLORIDE - SERUM 107 mmol/L (98-107); CREATININE - SERUM 0.6 mg/dL (0.6-1.3); GLUCOSE 160 mg/dL (74-106); POTASSIUM - SERUM 3.5 mmol/L (3.5-5.1); PROTEIN - SERUM 6.2 g/dL (6.4-8.2); SODIUM 144 mmol/L (136-145); eGFR NON AFRICAN AMERICAN > 90 mL/min (90-120)
[2018-04-12 05:11] LABS: BASOPHILS 0.4 % (0-2); EOSINOPHILS 1.5 % (0-7); HEMATOCRIT 32.8 % (36.0-48.0); HEMOGLOBIN 10.7 g/dL (12-16); IMMATURE GRANULOCYTES 0.2 % (0-5); MCH 30.8 pg (26.0-34.0); MCHC 32.6 g/dL (31.0-37.0); MEAN PLATELET VOLUME 9.3 fL (7.4-10.4); MONOCYTES 7.3 % (2-11); NEUTROPHILS 66.6 % (40-80); PLATELET COUNT 430 10x3/uL (130-400); RBC 3.47 10x6/uL (4.00-5.40); RDW 13.4 % (11.5-14.5); WBC 9.1 10x3/uL (4.8-10.8)
[2018-04-12 05:12] LABS: UREA NITROGEN 6 mg/dL (7-18)
[2018-04-12 05:17] LABS: MCV 94.5 fL (80.0-100.0)
[2018-04-12 08:52] VITALS: BP 157/66
[2018-04-12 13:28] VITALS: BP 147/58
[2018-04-12 19:42] VITALS: BP 107/65
[2018-04-12 21:24] VITALS: BP 129/50
[2018-04-13 04:47] LABS: BASOPHILS 0.4 % (0-2); EOSINOPHILS 1.3 % (0-7); HEMATOCRIT 33.2 % (36.0-48.0); HEMOGLOBIN 10.9 g/dL (12-16); IMMATURE GRANULOCYTES 0.2 % (0-5); LYMPHOCYTES 19.7 % (15-50); MCH 31.4 pg (26.0-34.0); MCHC 32.8 g/dL (31.0-37.0); MCV 95.7 fL (80.0-100.0); MEAN PLATELET VOLUME 9.2 fL (7.4-10.4); MONOCYTES 6.4 % (2-11); PLATELET COUNT 426 10x3/uL (130-400); RBC 3.47 10x6/uL (4.00-5.40); RDW 13.5 % (11.5-14.5); WBC 9.7 10x3/uL (4.8-10.8)
[2018-04-13 05:04] LABS: ALBUMIN 2.6 g/dL (3.4-5.0); ALKALINE PHOSPHATASE 33 U/L (46-116); ALT (SGPT) 11 U/L (10-68); BILIRUBIN - TOTAL 0.29 mg/dL (0.2-1.3); CALC OSMOLALITY 285 mosm/kg (275-300); CALCIUM 8.4 mg/dL (8.5-10.1); CARBON DIOXIDE 30.1 mmol/L (21.0-32.0); CHLORIDE - SERUM 107 mmol/L (98-107); CREATININE - SERUM 0.6 mg/dL (0.6-1.3); GLUCOSE 156 mg/dL (74-106); POTASSIUM - SERUM 3.7 mmol/L (3.5-5.1); PROTEIN - SERUM 6.1 g/dL (6.4-8.2); SODIUM 143 mmol/L (136-145); eGFR NON AFRICAN AMERICAN > 90 mL/min (90-120)
[2018-04-13 05:12] LABS: UREA NITROGEN 8 mg/dL (7-18)
[2018-04-13 05:18] VITALS: BP 106/47
[2018-04-13 08:57] VITALS: BP 118/38
[2018-04-13 12:30] VITALS: BP 117/69
[2018-04-13 16:29] VITALS: BP 125/54
[2018-04-13] MEDS ORDERED: OXYBUTYNIN CHLOR5 MG PO (16:33)
[2018-04-13] MEDS ORDERED: HYDROCODONE-IB1 EAC3 PO (16:34)
== END 2018-04-13 17:49 | disposition home or self-care (01) | DRG 660 ==
LOC: D.ER 00:33 → D.MS 00:59
PROVIDERS: Emergency Medicine; Radiology Vascular & Interventional Radiology; Urology
PROC: BT1D1ZZ Fluoroscopy of Right Kidney, Ureter and Bladder using Low Osmolar Contrast (ICD-10-PCS; 2018-04-12)
PROC: 0T768DZ Dilation of Right Ureter with Intraluminal Device, Via Natural or Artificial Opening Endoscopic (ICD-10-PCS; principal; 2018-04-12 13:00)
PROC: 0WPJ0JZ Removal of Synthetic Substitute from Pelvic Cavity, Open Approach (ICD-10-PCS; 2018-04-12 13:00)
PROC: 0TP5X0Z Removal of Drainage Device from Kidney, External Approach (ICD-10-PCS; 2018-04-13)
DX: T83.598A Infection and inflammatory reaction due to other prosthetic device, implant and graft in urinary system, initial encounter (principal); N13.1 Hydronephrosis with ureteral stricture, not elsewhere classified; N36.8 Other specified disorders of urethra; E11.65 Type 2 diabetes mellitus with hyperglycemia; K62.3 Rectal prolapse; F41.9 Anxiety disorder, unspecified